=== PATIENT | female | born 1955 | race Caucasian/White ===

== ENCOUNTER 2017-11-28 16:15 | Emergency (ER) | payer MEDICAID ==
[~2017-11-28] VITALS: Ht 162.6 cm; Wt 45.8 kg
[~2017-11-28 16:15] MED LIST: HYDR-3241 PO; LISI-167 PO; TIMO5DRO5 EACHEYE
[2017-11-28 16:23] VITALS: BP 111/76
[2017-11-28] MEDS ORDERED: LIDOCAINE-MPF 2%, 2ML ONE (16:39)
[2017-11-28] MEDS ORDERED: DIPH,PERTUSS(ACELL),TET VAC/PF 0.5 ML IM-VACC ONE ×2 (17:00→17:02)
[2017-11-28] MEDS ORDERED: LIDOCAINE 2%, 20ML SQ ONE (17:00)
[2017-11-28] MEDS ORDERED: BACITRACIN ZINC OINT 500U/GM, 0.9 GM ONE (17:09)
== END 2017-11-28 17:30 | disposition home or self-care (01) ==
LOC: ED 17:09
DX: T25.231A Burn of second degree of right toe(s) (nail), initial encounter (principal); T31.0 Burns involving less than 10% of body surface; L03.031 Cellulitis of right toe; R09.81 Nasal congestion; H92.03 Otalgia, bilateral; R05 Cough; I10 Essential (primary) hypertension; F17.200 Nicotine dependence, unspecified, uncomplicated; X12.XXXA Contact with other hot fluids, initial encounter; Y93.89 Activity, other specified; Y92.89 Other specified places as the place of occurrence of the external cause; Y99.8 Other external cause status
CPT/HCPCS: 16020; 90471; 90715; 99284

== ENCOUNTER 2018-02-05 20:06 | Emergency (ER) | payer MEDICAID ==
[~2018-02-05] VITALS: Ht 162.6 cm; Wt 45.0 kg
[2018-02-05 20:17] VITALS: BP 113/78
[2018-02-05] MEDS ORDERED: BACITRACIN ZINC OINT 500U/GM, 0.9 GM ONE (20:42)
[2018-02-05] MEDS ORDERED: DEXAMETHASONE 4 MG TABLET ONE (20:42)
[2018-02-05] MEDS ORDERED: DEXAMETHASONE 4 MG TABLET PO ONE (21:00)
== END 2018-02-05 21:01 | disposition home or self-care (01) ==
LOC: ED 20:35
DX: H60.12 Cellulitis of left external ear (principal); J01.00 Acute maxillary sinusitis, unspecified; R04.0 Epistaxis; I10 Essential (primary) hypertension; G62.9 Polyneuropathy, unspecified
CPT/HCPCS: 99283

== ENCOUNTER 2019-11-06 17:26 | Emergency (ER) | payer MEDICAID ==
[~2019-11-06] VITALS: Ht 160 cm; Wt 43.6 kg
[2019-11-06] MEDS ORDERED: MORPHINE SULFATE 4 MG/ML, 1ML IVPush ONE (18:00)
[2019-11-06] MEDS ORDERED: ONDANSETRON 2MG/ML, 2ML IVPush ONE (18:00)
[2019-11-06] MEDS ORDERED: ACETAMINOPHEN 500 MG TABLET PO ONE (18:00)
[2019-11-06] MEDS ORDERED: MORPHINE SULFATE 4 MG/ML, 1ML ONE (18:13)
[2019-11-06] MEDS ORDERED: ACETAMINOPHEN 500 MG TABLET ONE (18:14)
[2019-11-06] MEDS ORDERED: ONDANSETRON 2MG/ML, 2ML ONE (18:14)
[2019-11-06 18:29] LABS: ANION GAP 7 mmol/L (5-15); CALCIUM 8.7 mg/dL (8.5-10.1); CHLORIDE 106 mmol/L (98-107); CREATININE 0.84 mg/dL (0.55-1.02)
[2019-11-06] MEDS ORDERED: SODIUM CHLORIDE 0.9% 1,000ML IVBOLUS ONE (18:30)
--- NOTE | 2019-11-06 18:39 | NUR ---
pt states she fell , tripped over a fan. right knee and hand and head pain since then. additionally pt has not been feeling well since monday, feels dizzy and wobbly. vomited yesterday and has nausea. iv established and medicated as noted on APR along with iv bolus infusing
[2019-11-06 18:46] LABS: MEAN CORPUSCULAR HEMOGLOBIN 34.4 pg (27.0-34.8); MEAN CORPUSCULAR HGB CONC 34.8 g/dL (32.4-35.8); MEAN PLATELET VOLUME 7.3 fL (7.4-10.4); PLATELET COUNT 115 x10^3/uL (130-400); RED BLOOD COUNT 4.28 x10^6/uL (3.82-5.3); RED CELL DISTRIBUTION WIDTH 12.9 % (9.6-15.2)
[2019-11-06 18:47] LABS: BASOPHILS # (AUTO) 0.01 x10^3/uL (0-0.1); BASOPHILS % (AUTO) 0 % (0-1); EOSINOPHILS % (AUTO) 0 % (1-7); LYMPHOCYTES # (AUTO) 0.48 x10^3/uL (1-3.4); LYMPHOCYTES % (AUTO) 7 % (22-44); MD SCAN; MONOCYTES # (AUTO) 0.26 x10^3/uL (0.2-0.8); MONOCYTES % (AUTO) 4 % (2-9); NEUTROPHILS # (AUTO) 5.71 x10^3/uL (1.8-6.8); NEUTROPHILS % (AUTO) 88 % (42-75)
--- NOTE | 2019-11-06 18:55 | NUR ---
Report received from DOUG Nash. This RN to assume care.
--- NOTE | 2019-11-06 18:59 | NUR ---
REPORT TO YADIEL CAMACHO
[2019-11-06] MEDS ORDERED: CEFTRIAXONE PMX 1GM/50ML 50 ML IV ONE (20:00)
[2019-11-06] MEDS ORDERED: CEFTRIAXONE PMX 1GM/50ML 50 ML ONE (20:08)
[2019-11-06 20:18] VITALS: BP 102/71
--- NOTE | 2019-11-06 21:08 | NUR ---
Discharge instructions given. All questions and concerns addressed. Patient ambulatory with a steady gait. Belongings with patient.
== END 2019-11-06 21:10 | disposition home or self-care (01) ==
LOC: ED 20:00
DX: S80.01XA Contusion of right knee, initial encounter (principal); J18.9 Pneumonia, unspecified organism; R11.2 Nausea with vomiting, unspecified; R50.9 Fever, unspecified; R93.89 Abnormal findings on diagnostic imaging of other specified body structures; I10 Essential (primary) hypertension; W01.0XXA Fall on same level from slipping, tripping and stumbling without subsequent striking against object, initial encounter; Y93.89 Activity, other specified; Y92.009 Unspecified place in unspecified non-institutional (private) residence as the place of occurrence of the external cause; Y99.8 Other external cause status
CPT/HCPCS: 71045; 73564; 80048; 83605; 84145; 85025; 87040; 96365; 96375; 99284; J0696; J2270; J2405; J7030; 36415; 87635